=== PATIENT | female | born 1955 | race Caucasian/White ===

== ENCOUNTER 2025-03-21 01:51 | Inpatient (IN) | payer BC, MEDICARE ==
[~2025-03-21] VITALS: Ht 154.9 cm; Wt 70.0 kg
[2025-03-21] VITALS (7 sets, daily range): BP systolic 138–166; BP diastolic 75–100; PULSE 73–90; RESP 12–26; TEMP 97–97.8; O2SAT 96–100
--- NOTE | 2025-03-21 01:59 | Physician Documentation ---
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 Throughout the day for monitor was reporting heart rate variable between 30 and 200. She was symptomatic and experienced chest pressure no shortness a breath when heart rate was high. No obvious trigger provocation. The particular palliating or aggravating factors. She has been seen for this multiple times at various healthcare facilities and most recently was told by [facility] that should she be experiencing symptoms again, she should come to [facility] for further evaluation considering Dr. Sultana is practicing here. She states that when a heart rate dropped down into the 30s, she felt lightheaded and has been need to take a deep breath, but then she states that it began climbing back up again. At the time of my examination she is completely asymptomatic. She denies any chest pain or difficulty breathing. No concern for tobacco, alcohol or illicit substances use Medication Reconciliation Allergies: Coded Allergies: acetaminophen (Verified Allergy, Unknown, 03/21/25) cyclobenzaprine (Verified Allergy, Unknown, 03/21/25) hydrocodone (Verified Allergy, Unknown, 03/21/25) pantoprazole (Verified Allergy, Unknown, 03/21/25) terbinafine (Verified Allergy, Unknown, 03/21/25) Review of Systems ROS 10 point review of systems was performed and unless noted above in HPI is negative for acute process/complaint. Physical Exam Physical Exam GENERAL: Awake, alert, oriented, GCS 15, no apparent distress, non-toxic appearing, answers questions, follows commands appropriately. HEENT: Atraumatic, normocephalic, pupils equal, extraocular muscles intact, sclerae anicteric, mucus membranes moist, oropharynx is clear, no stridor. NECK: supple, full active range of motion, trachea midline, no thyromegaly, no lymphadenopathy, no JVD. CARDIOVASCULAR: regular rate/rhythm, no murmurs/gallops/rubs, Pulses are 2+ in all extremities and symmetric. Capillary refill less than 2 seconds. PULMONARY: Nonlabored, good air movement ,no respiratory distress, speaking in full sentences, clear to auscultation bilaterally, no wheezing, no ronchi, no rales, no accessory muscle use. GASTROINTESTINAL: Soft, non-tender, non-distended, normal active bowel sounds, no organomegaly, no pulsatile masses, no CVA tenderness. NEUROLOGIC: Lucid with normal mental status. Normal facial symmetry. Moves all extremities symmetrically and with purpose. No truncal ataxia. Speech is fluid without evidence of dysarthria or aphasia, no focal deficits appreciated. MUSCULOSKELETAL: There is full range of motion of all extremities. There is no joint pain or joint swelling or joint erythema. There is no muscle pain or tenderness or swelling. EXTREMITIES: warm, well-perfused, no cyanosis, no clubbing, no edema, no acute deformities. Skin: warm, dry, no rashes or lesions, no jaundice, no petechiae orpurpura. No ecchymosis. PSYCHIATRIC: Normal affect, normal insight, normal concentration. Focused exam: [] Progress Results/Orders Results/Orders Orders - PELON STERN DO Electrocardiogram (03/21/25 01:55) Chest,Single View (03/21/25 02:20) Hs Troponin I W Calculations (03/21/25 03:55) Completed Orders - PELON STERN DO Cbc/Diff (03/21/25 01:55) PHOS (03/21/25 01:55) Chest,Single View (03/21/25 02:20) MG (03/21/25 01:55) TSH (03/21/25 01:55) Free T4 (03/21/25 01:55) CMP (03/21/25 01:55) Hs Troponin I W Calculations (03/21/25 01:55) Vital Signs 03/21/25 03/21/25 03/21/25 01:56 02:06 03:22 Temp 97.6 Pulse 87 76 Resp 22 16 B/P (MAP) 143/80 137/75 (95) Pulse Ox 95 99 Laboratory Tests Test 03/21/25 02:00 White Blood Count 5.2 Red Blood Count 4.61 Hemoglobin 12.6 Hematocrit 38.0 Mean Corpuscular Volume 82.4 Mean Corpuscular Hemoglobin 27.4 Mean Corpuscular Hemoglobin Concent 33.3 Red Cell Distribution Width 14.9 H Platelet Count 228 Mean Platelet Volume 7.6 Neutrophils (%) (Auto) 61.9 Lymphocytes (%) (Auto) 28.4 Monocytes (%) (Auto) 7.5 Eosinophils (%) (Auto) 1.3 Basophils (%) (Auto) 0.9 Neutrophils # (Auto) 3.2 Lymphocytes # (Auto) 1.5 Monocytes # (Auto) 0.4 Eosinophils # (Auto) 0.1 Basophils # (Auto) 0.0 CBC Comment Sodium Level 140 Potassium Level 3.8 Chloride Level 108 H Carbon Dioxide Level 25.4 Anion Gap 7 L Blood Urea Nitrogen 11 Creatinine 0.87 Estimated GFR/1.73 m2 64 BUN/Creatinine Ratio 12.6 Glucose Level 100 Calcium Level 8.6 Phosphorus Level 3.9 Magnesium Level 2.2 Total Bilirubin 0.4 Aspartate Amino Transf (AST/SGOT) 15 Alanine Aminotransferase (ALT/SGPT) 27 Alkaline Phosphatase 97 Troponin I High Sensitivity 9 Total Protein 6.9 Albumin 3.7 Globulin 3.2 Albumin/Globulin Ratio 1.2 Thyroid Stimulating Hormone (TSH) 3.57 Free Thyroxine 0.94 Chemistry Comments EKG/XRAY/CT/US/VASC/MRI EKG : Additional Comment EKG was obtained at my request and interpreted by myself shows sinus rhythm of 85, normal WY interval, narrow QRS, no QT prolongation, normal axis, no STEMI. Medical Decision Making Findings Facility Status: ED Holds, COUNTS INCLUDE 234 BEDS AT THE [facility] process The plan was discussed with the patient, who demonstrates clear understanding of the plan and is in agreement with the plan unless otherwise noted in the chart. All questions have been answered, all concerns were addressed unless otherwise documented. I was available throughout their ED stay for frequent reassessment and questions. Differential Diagnoses (considered and possible or likely): [Tachy-jackson syndrome, SVT, a flutter, AFib, less likely ventricular malignant arrhythmia, dehydration, electrolyte derangement, ACS, CHF] ??Differential Diagnoses (considered and unlikely, not requiring evaluation currently): [PE is unlikely] MDM Data Please see HPI for the following: Independent Historians and external Records Review. 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 All vitals signs/haemodynamics, ordered tests were independently reviewed and interpreted by myself. Nursing triage complaint and vitals reviewed, additional nursing notes were reviewed as available and I agree unless otherwise noted or documented in contradiction in the chart Vital Signs: Independently reviewed Labs: Independently interpreted Imaging: Independently interpreted Old Medical Records: Independently reviewed, see HPI for relevant summary and information Pulse Oximetry: [96%] interpreted as [normal on room air] by me [Subeditor: [Regular Rate, Regular rhythm, no ectopy, NSR] reviewed and interpreted by me] Additionally notably showing: [Hemodynamics reviewed. The patient is not febrile, not tachycardic, not bradycardic, no evidence of arrhythmia here, no ev idence of hypotension respiratory distress. Laboratory studies showed normal CBC, normal chemistry, normal troponin. Normal thyroid studies. Imaging was obtained showing unremarkable chest x-ray.] Tests considered but not ordered include: [Echocardiogram can be done on an inpatient basis] Social Determinants of Health Impact: Patient was evaluated in [facility] [place] access to healthcare due to below par ratio of patient to medical providers. [] Comorbid Conditions Impacting Present Evaluation and Care/Treatment: [Suspect a tachy-jackson] Management Discussions with other Healthcare Providers: [Hospitalist regarding admission] Treatment and Disposition Medication Management (Given or considered): []. See EMR for details Consideration for Hospitalization/Escalation/Deescalation of Care: Admission for observation has been considered, and appears to be necessary for further workup and monitoring of her symptomatic arrhythmia ?ED Course:?[No clinical deterioration] ?Shared decision making:?[] Code status:?FULL Please see the full Electronic Medical Record for full details of nursing documentation, medications list, other records of complete past medical history and conditions, vital signs, laboratory studies, and any radiologic study interpretations by radiologists. Portions of this note were completed using Locai dictation software and as a result there may exist minor errors in spelling. I have reviewed elements of past family and social history and agree as included in note. Departure Disposition: 09 ADMITTED INPATIENT Impression: Primary Impression: Tachy-jackson syndrome Additional Impressions: Palpitations Chest pain Shortness of breath Condition: Stable Referrals: NO PRIMARY CARE PROVIDER (PCP) Signature Scribe Signature: No scribe Attestation: This note accurately reflects clinical decisions, work performed by myself, DO LEENA Lubin NICHOLAS M DO Jul 31, 2025 01:59
[2025-03-21 02:17] LABS: MEAN PLATELET VOLUME 7.6 FL (7.4-10.4); RED CELL DISTRIBUTION WIDTH 14.9 % (11.5-14.5)
[2025-03-21 02:47] LABS: CREATININE 0.87 MG/DL (0.40-0.90); TOTAL CARBON DIOXIDE 25.4 MMOL/L (24-32); eCRCL 49 ML/MIN; eGFR 64 ML/MIN
--- NOTE | 2025-03-21 02:47 | RADIOLOGY REPORT ---
CHEST RADIOGRAPH Indication: Palpitations Technique: Single frontal view of the chest was obtained COMPARISON: None FINDINGS: Lines and Tubes: None Lungs: Clear Pleura: No effusion. No pneumothorax. Cardiomediastinal contours: Unremarkable atherosclerotic vascular calcifications. Generator overlies the left chest wall. Bones: Unremarkable IMPRESSION: 1. No acute disease.
[2025-03-21 02:57] LABS: PHOSPHORUS 3.9 MG/DL (2.3-4.5)
[2025-03-21] MEDS ORDERED: mag hydrox/Alum hydrox/simeth 30ml oral suspension PO PRN (05:05)
[2025-03-21] MEDS ORDERED: ondansetron/PF 4mg/2ml inj IV PRN (05:05)
[2025-03-21] MEDS ORDERED: magnesium hydroxide 30ml (MOM) UD suspension PO PRN (05:05)
--- NOTE | 2025-03-21 05:14 | HISTORY AND PHYSICAL-Residence ---
History & Physical Providers to CC Resident Creating Document: SAMI ORELLANA RES ~ History of Present Illness Reason for Admit\Complaint: Symptomatic palpitations History of Present Illness 69-year-old female patient undergoing current evaluation for possible tachybradycardia syndrome was airlifted from home in [place] by EMS for symptomatic palpitations. She developed chest pain that lasted for less than a minute, was right-sided and associated with shortness of breath and diaphoresis. Chest pain occurred at rest, no other identifiable aggravating factors. Patient has developed these symptoms since June were she develops dizziness if heart rate is low and develops chest pain with a heart rate is high. She was recently evaluated at Dr. Sultana's office one week ago and the plan was to complete evaluation for her tachy-jackson syndrome, about a few days ago a monitor was placed in her heart. Denies any syncopal episodes. Patient was extremely tired and drowsy during my exam, and provided limited history. Allergies: Coded Allergies: acetaminophen (Verified Allergy, Unknown, 03/21/25) cyclobenzaprine (Verified Allergy, Unknown, 03/21/25) hydrocodone (Verified Allergy, Unknown, 03/21/25) pantoprazole (Verified Allergy, Unknown, 03/21/25) terbinafine (Verified Allergy, Unknown, 03/21/25) Past Medical History Past Medical History Allergies Tachybrady syndrome Past Surgical History Surgical History Comment Cholecystectomy Past Social History Social History Comment Nonsmoker. No alcohol or other illicit drug abuse. Lives alone at home in [place]. Ambulates without assistive device use ROS ROS As stated above in the HPI, otherwise all systems are reviewed and negative. Exam Vitals: Vital Signs Date Time Temp Pulse Resp B/P (MAP) Pulse Ox O2 Delivery O2 Flow Rate FiO2 03/21/25 04:54 84 18 110/36 (60) 98 03/21/25 01:56 97.6 General: General: Sleepy, no acute distress. HEENT: Conjunctiva pink, Sclera clear, Mucus Membranes moist. Resp: Unlabored. Lungs clear to auscultation bilaterally. Heart: Regular Rate and rhythm, normal S1 and S2 without murmur, rub or gallop. Abdomen: Soft and non tender no organomegaly Extremities: No cyanosis,clubbing or edema. Skin: Warm and Dry. Diagnostic Data Last Recorded Lab Results: 03/21/2519903/21/25199 Advance Care Planning Advanced Care plannin - 30 Minutes Additional Plan Symptomatic palpitations: Underlying tachybrady syndrome During the time in the ER, has remained sinus, rate less than 90 beats per minute Blood pressure stable Recommend consultation with Dr. Sultana in a.m. Continue telemetry monitoring Allergies: Takes Zyrtec and Claritin Urinary incontinence: Uses Ditropan Restart medications after reconciliation Lines: PIV Code status: Full code Diet: Regular DVT prophylaxis: Heparin b.i.d. Sami Orellana PGY3, Internal medicine resident Date of Service: Mar 21, 2025 Billing Provider: ELDA ANNE MD,SAMI, RES Mar 21, 2025 05:14
[2025-03-21 06:15] LABS: LEUKOCYTE ESTERASE ,URINE NEGATIVE (Neg); NITRITES, URINE NEGATIVE (Neg); OCCULT BLOOD,URINE NEGATIVE (Neg)
[2025-03-21 06:22] LABS: UA COLLECTION TYPE CLN CATCH MIDSTREAM
--- NOTE | 2025-03-21 06:25 | ELECTROCARDIOGRAPH REPORT ---
[facility] Test Date: 2025-03-21 Test Time: 02:04:37 Pat Name: KALPANA RUANO Department: EMERGENCY ROOM Room: [place] [address] Gender: F Rehabilitation Caseworker: : 1955 Requested By: PELON STERN Order Number: [id number] Reading MD: Dr. Jaison Cartagena Measurements Intervals [place] Rate: 85 P: 51 AR: 139 QRS: 21 QRSD: 77 T: 46 QT: 397 QTc: 472 Interpretive Statements Sinus rhythm Probable left atrial enlargement Low voltage, precordial leads Baseline wander in lead(s) V3 Electronically Signed On 03-22-2025 19:28:[address] Jaison Cartagena Please click the below link to view image of tracing.
[2025-03-21] MEDS: docusate sod 100mg capsule PO SCH (08:00)
[2025-03-21] MEDS: K and/or MAG REPLACEMENT MC SCH (08:00)
[2025-03-21] MEDS: magnesium sulf-water 4G/100mL 100 ML IV PRN (08:11)
[2025-03-21] MEDS: magnesium sulf-water 2g/50mL 50 ML IV PRN (08:11)
[2025-03-21] MEDS: potassium Cl 40MEQ/1/2NS 520ml 520 ML IV PRN (08:12)
[2025-03-21] MEDS: potassium Cl 20 mEq SR tablet PO PRN ×2 (08:12)
[2025-03-21] MEDS: magnesium Cl slow-release 64mg tablet PO PRN (08:13)
[2025-03-21] MEDS: heparin, porcine 5000 units/ml vial SQ SCH (08:48)
[2025-03-21] MEDS ORDERED: SERT-434 PO (14:27)
[2025-03-21] MEDS ORDERED: OMEP20CA16 PO (14:27)
[2025-03-21] MEDS ORDERED: HYDR-3717 PO (14:27)
[2025-03-21] MEDS ORDERED: BENZ-111 PO (14:27)
[2025-03-21] MEDS ORDERED: CETI10CA PO (14:27)
[2025-03-21] MEDS ORDERED: OXYB-58 PO (14:27)
[2025-03-21] MEDS ORDERED: ALBU10.7 INH (14:27)
[2025-03-21] MEDS ORDERED: TIZA-189 PO (14:27)
[2025-03-21] MEDS ORDERED: BUDE10.7 INH (14:27)
--- NOTE | 2025-03-21 15:40 | PROGRESS NOTE ---
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 Since arrival at [facility] the patient's heart rate has been in sinus rhythm in the 60s to 90s. I am awaiting Cardiology evaluation and Mary Li cardiology CLOTHES PRESSER is aware and will consult for Dr. Sultana today. The patient feels well and was hoping to be discharged home I informed her that this is not possible she just was admitted around 5:00 a.m. and we need to monitor her overnight. Gen. No acute distress alert and oriented 4 Lungs clear to ascultation bilaterally, no wheezes rales or rhonchi appreciated Heart normal sinus rhythm no murmurs rubs or clicks noted Abdomen soft nontender bowel sounds are normoactive Lower extremities no clubbing cyanosis, nor edema appreciated bilaterally Visit Coding Cardiology Date of Service: Mar 21, 2025 Billing Provider: DES MORROW DO Cardiology Evaluation and Emmie: NOT BILLABLE (Admitted after midnight to be billed by manager art) DES MORROW DO Mar 21, 2025 15:39
--- NOTE | 2025-03-21 16:03 | CONSULTATION REPORT ---
History of Present Illness Providers to CC CC: LUKAS SULTANA MD ~ Reason for Admit\Admit Dx: Cardiology consultation History of Present Illness Patient presented from home secondary to palpitations. She states that she has a associated chest pressure and shortness for breath. She has been evaluated in the clinic secondary to episodes of syncope/dizziness. She had an event monitor in January with no significant arrhythmias. She had nonsustained SVT lasting for seven beats. She then passed out again and a 2nd event monitor was ordered. She is finishing up that study now. Denies past medical history. Has not on AV frank blocking agents. Allergies: Coded Allergies: acetaminophen (Verified Allergy, Unknown, 03/21/25) cyclobenzaprine (Verified Allergy, Unknown, 03/21/25) hydrocodone (Verified Allergy, Unknown, 03/21/25) pantoprazole (Verified Allergy, Unknown, 03/21/25) terbinafine (Verified Allergy, Unknown, 03/21/25) Home Medications Home Medications Active Reported Breztri Aerosphere Inhaler (Budesonide/Glycopyr/Formoterol) 160 Mcg-9 Mcg-4.8 Mcg/Actuation Hfa.aer.ad Sertraline HCl 100 Mg Tablet 1 Tab PO BID Atarax* (Hydroxyzine HCl) 10 Mg Tablet 1 Tab PO HS Airsupra 90-80 Mcg Inhaler (Albuterol Sulfate/Budesonide) 90 Mcg-80 Mcg/Actuation Hfa.aer.ad Omeprazole 20 Mg Capsule.dr 1 Cap PO DAILY Zanaflex (Tizanidine HCl) 2 Mg Tablet 1 Tab PO BID Ditropan Xl (Oxybutynin Chloride) 5 Mg Tab.osm.24 1 Tab PO DAILY Zyrtec (Cetirizine Hcl) 10 Mg Capsule 10 Mg PO DAILY Benzonatate 100 Mg Capsule 1 Cap PO TID PRN Past Medical History Medical History Comment Syncope Past Surgical History Surgical History Comment Cholecystectomy Past Family History Family History: FH: dementia Past Social History Social History Comment Quit smoking greater than 10 years ago. No alcohol or recreational drug use. Physical Exam Last Vital Signs Recorded: RN Vital Signs have been reviewed: Yes, Temperature: 97.8, Source: Temporal, Heart Rate: 90, Respiratory Rate: 19, BP: 138/75, Pulse Oximetry: 100, Weight: 70.000 Physical Exam General: Awake, alert, oriented. No apparent distress Neck: Supple. Normal range of motion. No JVD Respiratory: Lungs are clear to auscultation bilaterally. No respiratory distress. Chest: Normal shape and size. No accessory muscle use. Cardiovascular: Regular rate and rhythm. S1-S2. No murmur, gallop, rub. Gastrointestinal: Abdomen is soft. Nontender to palpation. Bowel sounds present. Extremities: No lower extremity edema, cyanosis or clubbing. Neurologic: Alert and oriented x4. Nonfocal Psychiatric: Normal mood and affect. Skin: Normal color. Warm and dry. Review of Systems ROS Complains of chest pain, shortness for breath, dizziness. Had episode of syncope that has been going on since June. Results Echocardiogram Echocardiogram Echocardiogram February 13, 2025 LVEF 65-70%. Trace TR/mild MR. Cardiac Stress Test Cardiac Stress Test Nuclear stress test March 15, 2025 with no reversible ischemia Diagram Lab Result Diagram: 03/21/25 0200 03/21/25 0403 Assessment/Plan Additional Plan This is a 69-year-old female who presented with multiple complaints. The following is her problem list: History of syncope Dizziness/palpitations Thyroid function normal. No electrolyte imbalances. No anemia --event monitor completed in February 15 2025 minimum heart rate 41, average heart rate 73, max heart rate 138 beats per minute. Rare PACs with seven runs of nonsustained SVT lasting 3-14 beats. --repeat event monitor pending --if no significant arrhythmias recommend loop recorder given syncopal episodes in the past. Case discussed with Dr. Chandu Sultana. In agreement with the above. Monitor overnight. We will re-evaluate tomorrow. Supervising MD Supervising Physician: SEE Izaguirre NP Mar 21, 2025 16:03
[2025-03-22] VITALS (13 sets, daily range): BP systolic 112–184; BP diastolic 60–97; PULSE 68–94; RESP 10–16; TEMP 97.1–97.8; O2SAT 97–100
[2025-03-22 06:47] LABS: MEAN PLATELET VOLUME 7.5 FL (7.4-10.4); RED CELL DISTRIBUTION WIDTH 14.7 % (11.5-14.5)
[2025-03-22 06:58] LABS: CHOL/HDL RATIO 4.3 (0.00-4.99); CREATININE 0.81 MG/DL (0.40-0.90); LDL CHOLESTEROL 155 MG/DL (50-100); TOTAL CARBON DIOXIDE 26.8 MMOL/L (24-32); eCRCL 48 ML/MIN; eGFR 70 ML/MIN
--- NOTE | 2025-03-22 12:10 | PROGRESS NOTE ---
Daily Progress Note Providers to CC ~ Antibiotic Timeout Antibiotic Ordered?: No Subjective No new complaints. Patient is presently asymptomatic. Objective Vital Signs Date Time Temp Pulse Resp B/P (MAP) Pulse Ox O2 Delivery O2 Flow Rate FiO2 03/22/25 11:39 88 03/22/25 11:00 97.4 14 165/85 (111) 98 Room Air Result Diagram: 03/22/25 0600 03/22/25 0608 Gen. awake alert oriented asymptomatic HEENT: Normocephalic, atraumatic, extraocular movements are intact, sclera anicteric, conjunctiva pinkish, moist oral mucosa, no rash or ulcers. NECK: Supple, no JVD, trachea midline. CHEST: Clear to auscultation, no wheezes crackles or rhonchi. HEART: Regular rate rhythm, no murmur gallop or rub. ABDOMEN: Soft, nontender, no organomegaly. EXTREMITIES: No cyanosis clubbing or edema. NEURO EXAM: Grossly nonfocal. MUSCULOSKELETAL : No joint swelling or deformities. SKIN: No rash or ulcers noted. Other Results Medications reviewed Problem\Assessment\Plan 69 years old female, presented to the ER after she developed chest pain and palpitations. Patient was airlifted from a hospital in [place]. 1. 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 Patient has been evaluated by Dr. Sultana. Continue treat per his recommendations. 2. Hypertension: Switch hydralazine to a scheduled treatment 3. Hyperlipidemia: Start on atorvastatin 4. Code status: Full code 5. Depression: Continue Zoloft Date of Service: Mar 22, 2025 Billing Provider: REBECA MEZA MD Common Visit Codes: 28097-MILTINLAVO INP/OBS CARE(HIGH) REBECA MEZA MD Mar 22, 2025 12:10
--- NOTE | 2025-03-22 13:28 | PROGRESS NOTE ---
Progress Note Cardiology Providers to CC ~ Subjective Subjective No overnight events. Telemetry reviewed. Has remained in normal sinus rhythm average heart rate in the 80s. Lowest heart rate while asleep was 49 beats per minute. No current complaints of dizziness or chest pain. Objective Result Diagram: 03/22/25 0600 03/22/25 0608 Objective General: Awake, alert, oriented. No apparent distress Neck: Supple. Normal range of motion. No JVD Respiratory: Lungs are clear to auscultation bilaterally. No respiratory distress. Chest: Normal shape and size. No accessory muscle use. Cardiovascular: Regular rate and rhythm. S1-S2. No murmur, gallop, rub. Gastrointestinal: Abdomen is soft. Nontender to palpation. Bowel sounds present. Extremities: No lower extremity edema, cyanosis or clubbing. Neurologic: Alert and oriented x4. Nonfocal Psychiatric: Normal mood and affect. Skin: Normal color. Warm and dry. Problem\Assessment\Plan Additional Plan This is a 69-year-old female who presented with multiple complaints. The following is her problem list: History of syncope Dizziness/palpitations Thyroid function normal. No electrolyte imbalances. No anemia --event monitor completed in February 15 2025 minimum heart rate 41, average heart rate 73, max heart rate 138 beats per minute. Rare PACs with seven runs of nonsustained SVT lasting 3-14 beats. --repeat event monitor pending --03/22/25: no overnight events. --if no significant arrhythmias on most recent event recommend loop recorder given syncopal episodes in the past. --encouraged to increase water intake. Case discussed with Dr. Lauren Sultana. In agreement with the above. Outpatient follow up recommended. Supervising Physician: SEE Mitchell NP Mar 22, 2025 13:28
--- NOTE | 2025-03-22 14:51 | ELECTROCARDIOGRAPH REPORT ---
[facility] Test Date: 2025-03-22 Test Time: 14:50:00 Pat Name: KALPANA RUANO Department: [facility] 3S Patient ID: [facility]-[id number] Room: [place] [address] B Gender: F Director Mobile: : 1955 Requested By: REBECA MEZA Order Number: [id number] Reading MD: Dr. LUZ Diaz Measurements Intervals [place] Rate: 89 P: 67 WY: 119 QRS: 36 QRSD: 87 T: 53 QT: 395 QTc: 481 Interpretive Statements Sinus rhythm Borderline short WY interval Electronically Signed On 03-23-2025 13:05:[address] LUZ Diaz Please click the below link to view image of tracing.
[2025-03-23 02:00] VITALS: BP 151/54; PULSE 72; RESP 16; TEMP 97.4; O2SAT 98
[2025-03-23 06:00] VITALS: BP 130/62; PULSE 68; RESP 16; TEMP 97.2; O2SAT 98
[2025-03-23 06:00] LABS: MEAN PLATELET VOLUME 7.4 FL (7.4-10.4); RED CELL DISTRIBUTION WIDTH 14.6 % (11.5-14.5)
[2025-03-23 06:24] LABS: CREATININE 0.90 MG/DL (0.40-0.90); TOTAL CARBON DIOXIDE 26.0 MMOL/L (24-32); eCRCL 43 ML/MIN; eGFR 62 ML/MIN
[2025-03-23 08:00] VITALS: RESP 15; O2SAT 100
[2025-03-23 11:00] VITALS: BP 150/64; PULSE 66; RESP 16; TEMP 97.6; O2SAT 99
--- NOTE | 2025-03-23 13:04 | DISCHARGE SUMMARY ---
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 Sultana Complications: None Condition on DC: Stable Continued Medications: Benzonatate (Benzonatate) 100 Mg Capsule 1 CAP PO TID PRN for cough Cetirizine Hcl (Zyrtec) 10 Mg Capsule 10 MG PO DAILY, CAP Hydroxyzine Hcl* (Atarax*) 10 Mg Tablet 1 TAB PO HS Omeprazole (Omeprazole) 20 Mg Capsule.dr 1 CAP PO DAILY Oxybutynin Chloride (Ditropan Xl) 5 Mg Tab.osm.24 1 TAB PO DAILY Sertraline HCl (Sertraline HCl) 100 Mg Tablet 1 TAB PO BID Tizanidine Hcl (Zanaflex) 2 Mg Tablet 1 TAB PO BID Discharge Summary: Reason for admission: 69 years old female presented to the ER for evaluation of palpitations. Patient reports that her heart rate fluctuates and when it is very rapid, she feels chest pain and when it is very low, she feels lightheaded and syncopal. Please refer to admission H&P for more details. Hospital course: Patient was admitted on the monitored floor and the hospital course is as follows. 1.. 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 She gets dizzy when her heart rate is low but when her heart rate is rapid she gets palpitations and chest pain. Patient has been evaluated by Dr. Sultana. Patient underwent event monitoring which showed a minimum heart rate of 41, average heart rate of 73 and a max heart rate of 138. Rare PACs with seven runs of nonsustained SVT lasting 3-14 beats. Thyroid function and electrolytes normal. Patient has had no significant arrhythmias during this admission and was monitored on tele. She is advised to follow up outpatient with her data collection interviewer. Patient reports that she had a MRI within last week at [facility] which was reported normal. 2. GERD: Continued on omeprazole 3. Urinary incontinence: Continued on oxybutynin 4. Depression/anxiety: Continued on Zoloft and Zanaflex. Discharge exam: I examined the patient on the day of discharge. Gen. awake alert oriented asymptomatic HEENT: Normocephalic, atraumatic, pupils round reactive to light and accommodation, extraocular movements are intact, sclera anicteric, conjunctiva pinkish, moist oral mucosa, no rash or ulcers. NECK: Supple, no JVD, trachea midline. CHEST: Clear to auscultation, no wheezes crackles or rhonchi. HEART: Regular rate rhythm, no murmur gallop or rub. ABDOMEN: Soft, nontender, no organomegaly. EXTREMITIES: No cyanosis clubbing or edema. NEURO EXAM: Grossly nonfocal. MUSCULOSKELETAL : No joint swelling or deformities. SKIN: No rash or ulcers noted. Disposition : Home *Problems/Diagnosis: (1) Tachy-jackson syndrome Status: Acute (2) Palpitations Status: Acute Total Time Spent on D/C: > 30 Minutes Date of Service: Mar 23, 2025 Billing Provider: REBECA MEZA MD Common Visit Codes: 92305-VSB/OBS DISCH DAY >30min REBECA MEZA MD Mar 23, 2025 13:04
[2025-03-23] MEDS: lactose-reduced food (Ensure Enlive) - 237ml bottle PO SCH (13:15)
[2025-03-23 13:24] VITALS: RESP 18; O2SAT 19
== END 2025-03-23 13:54 | disposition home or self-care (01) | DRG 309 ==
LOC: ER 01:51 → ED HOLD 04:43 → PCU 3S 09:35 → CMPBEDREQ 09:40
PROVIDERS: ADMIT Surgery Surgical Critical Care; ATTEND Family Medicine
DX: I49.5 Sick sinus syndrome (principal); I47.10 Supraventricular tachycardia, unspecified; F32.A Depression, unspecified; F41.9 Anxiety disorder, unspecified; K21.9 Gastro-esophageal reflux disease without esophagitis; R32 Unspecified urinary incontinence; E78.5 Hyperlipidemia, unspecified; I10 Essential (primary) hypertension; Z79.899 Other long term (current) drug therapy; Z88.8 Allergy status to other drugs, medicaments and biological substances
CPT/HCPCS: 36415; 71045; 80048; 80053; 80061; 81003; 83036; 83735; 84100; 84132; 84439; 84443; 84484; 85025; 87081; 93005; 96372; 99285; G0378; J1644; J2270

== ENCOUNTER 2025-03-25 19:42 | Inpatient (IN) | payer BC, MEDICARE ==
[~2025-03-25] VITALS: Ht 162.6 cm; Wt 68.1 kg
[~2025-03-25 19:42] MED LIST: ALBU10.7 INH; BENZ-111 PO; BUDE10.7 INH; CETI10CA PO; HYDR-3717 PO; OMEP20CA16 PO; OXYB-58 PO; SERT-434 PO; TIZA-189 PO
--- NOTE | 2025-03-25 19:52 | ELECTROCARDIOGRAPH REPORT ---
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 Tavares Del Angel Measurements Intervals [place] Rate: 61 P: 47 NH: 123 QRS: 7 QRSD: 81 T: 2 QT: 445 QTc: 449 Interpretive Statements Sinus rhythm Nonspecific T abnrm, anterolateral leads Electronically Signed On 03-25-2025 21:49:[address] Tavares Del Angel Please click the below link to view image of tracing.
[2025-03-25 19:56] LABS: MEAN PLATELET VOLUME 7.6 FL (7.4-10.4); RED CELL DISTRIBUTION WIDTH 14.5 % (11.5-14.5)
[2025-03-25 20:15] LABS: CREATININE 0.91 MG/DL (0.40-0.90); PRO BRAIN NATRIURETIC PEPTIDE 139 PG/ML (0-125); TOTAL CARBON DIOXIDE 26.5 MMOL/L (24-32); eCRCL 49 ML/MIN; eGFR 61 ML/MIN
--- NOTE | 2025-03-25 20:24 | RADIOLOGY REPORT ---
CHEST RADIOGRAPH Indication: CP Technique: 1 view Comparison: DI CHEST,SINGLE VIEW on DOS: 03/21/25 FINDINGS: Lines and Tubes: None Lungs: No focal consolidation. Pleura: No effusion or pneumothorax. Cardiomediastinal contours: Normal size. Aortic atherosclerosis. Bones: No acute osseous abnormality. IMPRESSION: 1. No acute cardiopulmonary abnormality or significant change from comparison exam.
--- NOTE | 2025-03-26 01:42 | Physician Documentation ---
History of Present Illness ~ Chief Complaint: Chest Pain Stated Complaint: CP Time Seen by MD: 01:40 OK to notify your PCP?: Yes Source: patient, RN/MD, RN notes reviewed, old records Mode of Arrival: POV Exam Limitations: no limitations HPI 69 year old female with recent admission due to palpitations presents to the emergency department for complaints of chest pains that began today. 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 She states that her palpations feel like a flutter in her chest and are associated with near syncopal episodes and headaches. She states that she has not been having any diaphoresis. She endorses caffeine use from coca cola. She states that she is not on beta blockers and is only taking baby aspirin. Of note patient had a recent stress test when admitted but states that it was negative. Medication Reconciliation Allergies: Coded Allergies: acetaminophen (Verified Allergy, Unknown, 03/25/25) cyclobenzaprine (Verified Allergy, Unknown, 03/25/25) hydrocodone (Verified Allergy, Unknown, 03/25/25) pantoprazole (Verified Allergy, Unknown, 03/25/25) terbinafine (Verified Allergy, Unknown, 03/25/25) hydralazine (Verified Adverse Reaction, Mild, chest pain, 03/26/25) Scheduled Budesonide/Glycopyr/Formoterol (Breztri Aerosphere Inhaler), 2 PUFFS INH BID, (Reported) Cetirizine Hcl (Zyrtec), 10 MG PO DAILY, (Reported) Hydroxyzine Hcl* (Atarax*), 1 TAB PO HS, (Reported) Losartan Potassium (Losartan Potassium), 25 MG PO DAILY Omeprazole (Omeprazole), 1 CAP PO DAILY, (Reported) Oxybutynin Chloride (Ditropan Xl), 1 TAB PO DAILY, (Reported) Scheduled PRN Albuterol Sulfate/Budesonide (Airsupra 90-80 Mcg Inhaler), 2 PUFFS INH QID PRN for SOB or wheezing, (Reported) Benzonatate (Benzonatate), 1 CAP PO TID PRN for cough, (Reported) Tizanidine Hcl (Zanaflex), 1 TAB PO BID PRN for muscle spasms, (Reported) Discontinued Medications Sertraline HCl (Sertraline HCl), 1 TAB PO BID, (Reported) Discontinued Reason: completed med therapy Past Medical History Past Medical History: COPD, Hernia Past Surgical History: cholecystectomy, hysterectomy Patient History: FH: dementia Smoking Status: Never smoker Alcohol Use: None Drug Use: none Review of Systems All Other Systems at this time: Reviewed and Negative ROS As stated above in the HPI, otherwise all systems are reviewed and negative. Physical Exam Vital Signs: RN Vital Signs have been reviewed: Yes, Temperature: 97.6, Source: Temporal, Heart Rate: 59, Respiratory Rate: 17, BP: 118/69, Pulse Oximetry: 99, Weight: 68.100 Oxygen Flow Rate: 0 Pulse Oximetry Reflects: adequate oxygenation Physical Exam General: The patient is well developed, well nourished, nontoxic appearing and is in no acute distress. Skin: L[place], warm and dry with no rashes. HEENT: Head was normocephalic and atraumatic. Eyes - pupils equal, round, reactive to light and accommodation. Extraocular movements were intact. Conjunctivae were nonicteric. Ears - bilateral tympanic membranes were normal. The mouth and oropharynx were clear with moist mucous membranes. There were no pharyngeal exudates or erythema. Neck: Supple and nontender. There was no jugular venous distention, lymphadenopathy, thyromegaly or masses. Chest: Clear to auscultation bilaterally without wheezes, rales or rhonchi. No accessory muscle use. No dullness to percussion. Heart: PVCs on exam. Rate regular and rhythmic. S1, S2. No murmurs. Palpation of the chest wall was normal. No rubs or thrills. Abdomen: Soft, nontender and nondistended. Positive bowel sounds. No guarding or rebound. No hepatosplenomegaly or palpable masses. Extremities: No cyanosis, clubbing or edema. The patient moves all extremities. Pulses were equal and symmetric. Neurologic: Cranial nerves II-XII were intact. Sensation was intact to light touch throughout. Motor strength was 5/5 in all four extremities. Deep tendon reflexes were intact in both upper and lower extremities. Psychologic: The patient was oriented to person, place and time. The patient demonstrated appropriate judgement and insight. Progress Progress Note 0228: The case was discussed with the hospitalist who was informed on the case and kindly agreed to admission. Results/Orders Reviewed/noted all lab results: Yes Results/Orders Orders - JAISON CARTAGENA MD Chest,Single View (03/25/25 20:03) Monitor (03/25/25 19:50) Saline Lock (03/25/25 19:50) Oxygen (03/25/25 19:50) Electrocardiogram (03/25/25 19:50) Page Hospitalist (03/26/25 01:55) Fill Out Med Reconciliation (03/26/25 01:55) Completed Orders - JAISON CARTAGENA MD Chest,Single View (03/25/25 20:03) Cbc/Diff (03/25/25 19:50) BMP (03/25/25 19:50) PBNP (03/25/25 19:50) Electrocardiogram (03/25/25 19:50) Hs Troponin I W Calculations (03/25/25 19:50) Hs Troponin I W Calculations (03/25/25 21:50) Hs Troponin I W Calculations (03/25/25 22:50) Urinalysis, Cult If Indicated (03/26/25 01:55) Pt Inr (03/26/25 01:55) PTT (03/26/25 01:55) Normal Saline 1000ml (0.9% Sodium Chlori (03/26/25 01:55) Aspirin 81mg Chew Tablet (Aspirin 81mg C (03/26/25 01:55) MG (03/25/25 19:47) Vital Signs 03/25/25 03/25/25 03/25/25 03/25/25 19:50 20:30 20:30 21:00 Temp 97.6 Pulse 73 73 65 Resp 15 18 18 16 B/P (MAP) 137/79 143/66 (91) 120/61 (80) Pulse Ox 98 99 98 O2 Flow Rate 0 0 03/25/25 03/25/25 03/25/25 03/25/25 21:33 22:00 22:24 23:15 Pulse 62 57 64 52 Resp 18 16 16 15 B/P (MAP) 120/56 (77) 104/50 (68) 132/66 (88) 120/54 (76) Pulse Ox 99 97 98 97 O2 Flow Rate 0 0 8/5/25 8/5/25 8/5/25 8/5/25 00:00 01:45 02:35 03:17 Pulse 59 55 54 55 Resp 17 17 14 16 B/P (MAP) 118/69 (85) 92/46 (61) 138/49 (78) 160/68 (98) Pulse Ox 99 99 98 99 O2 Flow Rate 0 0 0 0 Laboratory Tests Test 03/25/25 19:47 03/25/25 21:36 03/25/25 22:39 03/26/25 02:21 White Blood Count 5.5 Red Blood Count 4.51 Hemoglobin 12.8 Hematocrit 37.4 Mean Corpuscular Volume 83.0 Mean Corpuscular Hemoglobin 28.3 Mean Corpuscular Hemoglobin Concent 34.1 Red Cell Distribution Width 14.5 Platelet Count 230 Mean Platelet Volume 7.6 Neutrophils (%) (Auto) 59.4 Lymphocytes (%) (Auto) 31.8 Monocytes (%) (Auto) 6.8 Eosinophils (%) (Auto) 1.1 Basophils (%) (Auto) 0.9 Neutrophils # (Auto) 3.3 Lymphocytes # (Auto) 1.7 Monocytes # (Auto) 0.4 Eosinophils # (Auto) 0.1 Basophils # (Auto) 0.1 CBC Comment Sodium Level 140 Potassium Level 4.0 Chloride Level 107 Carbon Dioxide Level 26.5 Anion Gap 7 L Blood Urea Nitrogen 18 Creatinine 0.91 H Estimated GFR/1.73 m2 61 BUN/Creatinine Ratio 19.8 Glucose Level 94 Calcium Level 8.7 Magnesium Level 2.0 Troponin I High Sensitivity 15 16 16 Pro-B-Type Natriuretic Peptide 139 H Albumin 3.8 Chemistry Comments Troponin I High Sens Percent Delta 6 0 Troponin I Hi Sens Absolute Change 1 0 Prothrombin Time 10.3 INR International Normalized Ratio 1.0 Activated Partial Thromboplast Time 23 Coagulation Comments Re-Evaluation Re-Evaluation : Re-Evaluation: Improved Progress Patient was seen and examined. Patient is given reassurance. Patient was placed on a monitor. Laboratory work was obtained. CBC was within normal limits no anemia or leukocytosis. Urinalysis was within normal limits coagulation within normal limits chemistry was also within normal limits proBNP 139 and 3- troponins. Patient was complaining of palpitations possible ischemic etiology unclear. Patient received a fluid bolus if the patient was going to receive a cardiac catheterization tomorrow. Also received aspirin if the possibility of coronary artery disease was an etiology otherwise patient was admitted for rule out cardiac arrhythmias versus ischemic etiologies versus neuro etiologies however there was no neurological focal Continuous environmental monitoring technician interpretation shows normal sinus rhythm heart rate 70s, no ectopy, normal, my interpretation. Pulse oximetry monitor interpretation shows normal oxygenation at 99% room air, normal, my interpretation. 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 Jaison Cartagena Measurements Intervals [place] Rate: 61 P: 47 CA: 123 QRS: 7 QRSD: 81 T: 2 QT: 445 QTc: 449 Interpretive Statements Sinus rhythm Nonspecific T abnrm, anterolateral leads Electronically Signed On 03-25-2025 21:49:[address] Jaison Cartagena Chest X-Ray : Additional Comments CHEST RADIOGRAPH Indication: CP Technique: 1 view Comparison: DI CHEST,SINGLE VIEW on DOS: 03/21/25 FINDINGS: Lines and Tubes: None Lungs: No focal consolidation. Pleura: No effusion or pneumothorax. Cardiomediastinal contours: Normal size. Aortic atherosclerosis. Bones: No acute osseous abnormality. IMPRESSION: 1. No acute cardiopulmonary abnormality or significant change from comparison exam. Electronically Signed by:HEMANT CARRILLO MD Date & Time: 03/25/252020 Heart Score: Heart Score Response (Comments) Value History Moderate Suspicious 1 EKG Normal 0 Age >65 2 Risk Factors 1 or 2 risk factors 1 Troponin Normal limit 0 Total 4 Medical Decision Making Additional info obtained from: old records Differential Dx:Considerations: Include: angina, aortic dissection, chest wall pain, cholelithiasis, CHF, costochondritis, myocardial infarction, pericarditis, pleuritis, pancreatitis, pneumonia, pneumothorax, pulmonary embolus, other Departure Time of Disposition: 02:28 Disposition: 09 ADMITTED INPATIENT Admitted to Inpatient Unit: yes, to hospitalist Admission Level of Care: PCU with Tele Impression: Primary Impression: Near syncope Additional Impressions: Chest pain Qualified Codes: I25.9 - Chronic ischemic heart disease, unspecified Palpitations Condition: Guarded Referrals: NO PRIMARY CARE PROVIDER (PCP) Prescriptions Losartan Potassium (Losartan Potassium) 25 Mg Tablet 25 MG PO DAILY for 90 Days, #90 TAB Prov: KARIE SKINNER DATA ENTRY MACHINE OPERATOR 03/28/25 Education Educated: Patient Educated regarding: diagnosis, treatment, need for follow up Signature Scribe Signature: Scribed for Jaison Cartagena MD by Ace Mortensen . 03/26/25 02:05 Attestation: The note accurately reflects work and decisions made by me.Jaison Cartagena MD 03/29/25 22:15 JAISON CARTAGENA MD Mar 26, 2025 01:41 ACE RODRIGUEZ Mar 26, 2025 02:05
[2025-03-26] MEDS: normal saline 1000ml 1,000 ML IV ONE (02:34)
[2025-03-26 02:45] LABS: INR 1.0 INR
[2025-03-26 02:47] LABS: APTT 23 SECONDS (22-32)
[2025-03-26] MEDS ORDERED: ondansetron/PF 4mg/2ml inj IV PRN (03:15)
[2025-03-26] MEDS ORDERED: magnesium sulf-water 2g/50mL 50 ML IV PRN (03:15)
[2025-03-26] MEDS ORDERED: magnesium hydroxide 30ml (MOM) UD suspension PO PRN (03:15)
[2025-03-26] MEDS ORDERED: mag hydrox/Alum hydrox/simeth 30ml oral suspension PO PRN (03:15)
[2025-03-26] MEDS ORDERED: magnesium Cl slow-release 64mg tablet PO PRN (03:15)
[2025-03-26] MEDS ORDERED: potassium Cl 20 mEq SR tablet PO PRN ×2 (03:15)
[2025-03-26] MEDS ORDERED: potassium Cl 40MEQ/1/2NS 520ml 520 ML IV PRN (03:15)
[2025-03-26] MEDS ORDERED: magnesium sulf-water 4G/100mL 100 ML IV PRN (03:15)
[2025-03-26] MEDS ORDERED: ipratropium/albuterol 3ml nebule NEB PRN (03:35)
[2025-03-26 04:18] LABS: LEUKOCYTE ESTERASE ,URINE NEGATIVE (Neg); NITRITES, URINE NEGATIVE (Neg); OCCULT BLOOD,URINE NEGATIVE (Neg)
[2025-03-26 04:19] LABS: UA COLLECTION TYPE CLN CATCH MIDSTREAM
--- NOTE | 2025-03-26 04:25 | HISTORY AND PHYSICAL-Residence ---
History & Physical Providers to CC Resident Creating Document: DIEGO HERNANDEZ RES CC: CIRO OHARA MD ~ History of Present Illness Reason for Admit\Complaint: Palpitations and chest pain History of Present Illness 69-year-old male with PMH of GERD, anxiety, allergies, urinary incontinence, presented to the ER with chief complaints of palpitations and chest pain this morning. Patient stated she is having this ongoing for the past 68 months. However this morning when she was working she experienced chest pain over the center of the chest, radiating to both side of the jaws, not describing it as pressure, not aggravated with exertion, and relieved after sometime. Stated she had similar episodes before but none of the episodes are associated with exertion. He also had palpitations on and off, denies currently lightheadedness however patient stated two months ago she had lightheadedness and syncope. She was admitted to the hospital two days ago and discharged on 03/23, cardiology recommended outpatient follow up on event monitor at the time. Allergies: Coded Allergies: acetaminophen (Verified Allergy, Unknown, 03/25/25) cyclobenzaprine (Verified Allergy, Unknown, 03/25/25) hydrocodone (Verified Allergy, Unknown, 03/25/25) pantoprazole (Verified Allergy, Unknown, 03/25/25) terbinafine (Verified Allergy, Unknown, 03/25/25) hydralazine (Verified Adverse Reaction, Mild, chest pain, 03/26/25) Home Medications Home Medications Active Reported Breztri Aerosphere Inhaler (Budesonide/Glycopyr/Formoterol) 160 Mcg-9 Mcg-4.8 Mcg/Actuation Hfa.aer.ad 2 Puffs INH BID Atarax* (Hydroxyzine HCl) 10 Mg Tablet 1 Tab PO HS Airsupra 90-80 Mcg Inhaler (Albuterol Sulfate/Budesonide) 90 Mcg-80 Mcg/Actuation Hfa.aer.ad 2 Puffs INH QID PRN Omeprazole 20 Mg Capsule.dr 1 Cap PO DAILY Zanaflex (Tizanidine HCl) 2 Mg Tablet 1 Tab PO BID PRN Ditropan Xl (Oxybutynin Chloride) 5 Mg Tab.osm.24 1 Tab PO DAILY Zyrtec (Cetirizine Hcl) 10 Mg Capsule 10 Mg PO DAILY Benzonatate 100 Mg Capsule 1 Cap PO TID PRN Past Medical History Past Medical History GERD Anxiety Allergies Urinary incontinence Past Surgical History Surgical History Comment Cholecystectomy Family History Family History: FH: dementia Past Social History Social History Comment Does not smoke, denies illegal drug use, no alcohol abuse Independent for ADLs Lives by herself Alcohol Use: None Drug Use: None ROS All Other Systems: Reviewed and Negative ROS ROS Constitutional: No fever, dizziness, weakness. no change in appetite/weight HEENT: No blurring of the vision, No sore throat, epistaxis, tinnitus Cardiovascular: Positive for chest pain/discomfort, palpitations, syncope. No pedal edema Respiratory: No sob, cough,, hemoptysis Gastrointestinal: No abdominal pain, nausea, vomiting. No diarrhea, constipation, melena. Genitourinary: No frquency, urgency, incontinence, nocturia. No dysuria, hematuria Musculoskeletal: No arthralgia, myalgia Endocrine: No fatigue, polydipsia, polyuria. No heat or cold intolerance Neurologic: No headache, vertigo. No weakness, numbness or tingling of extremities Psychiatric: No hallucinations/delusions, no anhedonia, no suicidal ideation\ Hematologic: No bleeding or bruises Reviewed in full. All negative except for pertinent positives in HPI Exam Vitals: Vital Signs Date Time Temp Pulse Resp B/P (MAP) Pulse Ox O2 Delivery O2 Flow Rate FiO2 03/26/25 03:17 55 16 160/68 (98) 99 0 03/25/25 19:50 97.6 General: General: Elderly female, pleasant, AAO x4, not in apparent distress Head: Normocephalic with an atraumatic Eyes: Pupils- 3mm, reacting to light, conjunctiva- anicteric Nose and throat: No polyps, septum- normal, no mucosal ulcers Neck: Supple, no lymphadenopathy, no carotid bruit Respiratory: No use of accessory muscles of respiration, Bilateral normal vesiscular breath sounds heard. No wheeze, rhochi or creps Cardiac: S1-S2 heard, rythm regular, no gallop/murmur Abdomen: non distended, no tenderness, no organomegaly, bowel sounds- heard Extremities: no clubbing, no pedal edema, no deformities, peripheral pulses- 2+ Skin: warm and dry, no rash, no purpura Neuro: No focal deficit, gross cranial nerve exam- normal Diagnostic Data Last Recorded Lab Results: [id number]/[id number] Diagnostic Data: Laboratory Tests Test 03/26/25 02:21 Prothrombin Time 10.3 SECONDS (9.0-12.0) INR International Normalized Ratio 1.0 INR Activated Partial Thromboplast Time 23 SECONDS (22-32) Coagulation Comments Advance Care Planning Advanced Care plannin - 30 Minutes (Code status is discussed with her and she opted for full code) Additional Plan 69-year-old male with PMH of GERD, anxiety, allergies, urinary incontinence, presented to the ER with chief complaints of palpitations and chest pain this morning. These symptoms has been ongoing for past 6-8 months Chest pain GERD -unlikely cardiac -EKG showed normal rhythm, no acute ST-T changes, troponins x3 negative. Patient has recently undergone stress test and echo, results of which we have to be obtained from Dr. Morales office -and she had history of GERD, and as patient is having chronic chest pain with no definitive diagnosis- admitting the patient for evaluation of the GERD and possible EGD. -start IV Protonix 40 mg once daily. -consult Dr. Romero sales trader Palpitations -the even monitor which showed nonsustained SVT -etiology during the last admission recommended the repeat event monitoring and loop recorder if needed -TSH is normal -could be secondary to anxiety -admitted for 24 hour telemetry for monitoring of any arrhythmia Anxiety -continue hydroxyzine Allergies -continues zyrtec Urinary incontinence -continue Ditropan Code Status: Full code Line/tube: PIV DVT prophylaxis: Lovenox Nutrition: Heart healthy PT: No Prognosis: Guarded Disposition: Continue care in ortho floor, consult Cardiology and gastro Diego Hernandez MD IM PGY-3 resident Date of Service: Mar 26, 2025 Billing Provider: CIRO OHARA MD, HARIVARSHA, RES Mar 26, 2025 04:25
[2025-03-26 05:41] VITALS: PULSE 55; RESP 14; O2SAT 100
[2025-03-26] MEDS: K and/or MAG REPLACEMENT MC SCH (06:16)
[2025-03-26] MEDS: docusate sod 100mg capsule PO SCH (06:16)
[2025-03-26] MEDS ORDERED: pantoprazole 40mg Tablet.DR PO SCH (07:30)
[2025-03-26] MEDS: OXYBUTYNIN 5 MG PO SCH (07:46)
[2025-03-26] MEDS: enoxaparin 40mg/0.4ml syringe SUBCUT SCH (07:53)
[2025-03-26 08:00] VITALS: BP_SYST 131; BP_SYST 140; BP_SYST 142; BP_DIAS 55; BP_DIAS 68; BP_DIAS 73; PULSE 54; PULSE 75
[2025-03-26 10:00] VITALS: BP 131/55; PULSE 57; RESP 19; TEMP 97.7; O2SAT 98
[2025-03-26] MEDS ORDERED: aminophylline 250mg/10ml inj. IV PRN (10:50)
[2025-03-26] MEDS ORDERED: regadenoson 0.4mg/5ml syringe IV PRN (10:50)
[2025-03-26] MEDS ORDERED: metoprolol tartrate 1mg/ml inj IV PRN (10:50)
--- NOTE | 2025-03-26 13:14 | VASCULAR REPORT ---
Carotid Duplex Clinical History: Lightheadedness, dizziness Comparison: None Technique: Duplex Doppler evaluation of the extracranial carotid and vertebral arteries including color Doppler and spectral/pulsed waveform analysis was performed. Findings: RIGHT SIDE: The peak systolic velocities are 112 cm/s in the CCA, 116 cm/s in the ICA. The ICA/CCA ratio is 1.29 . The external carotid artery is patent with peak systolic velocity of 136 cm/s proximally. The subclavian artery is patent with peak systolic velocity of 284 cm/s. 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 LEFT SIDE: The peak systolic velocities are 121 cm/s in the CCA, 111 cm/s in the ICA. The ICA/CCA ratio is 1.34 . The external carotid artery is patent with peak systolic velocity of 100 cm/s proximally. The subclavian artery is patent with peak systolic velocity of 227 cm/s. There is appropriate antegrade flow in the left vertebral artery. IMPRESSION: Less than 50% stenosis of bilateral carotid artery systems based on peak systolic velocity criteria a nd presence of atheromatous plaque. Nonspecific turbulent waveforms in the bilateral subclavian arteries with stenotic velocities. 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 Antegrade flow in the left vertebral artery. Reference: Radiology 2003; 229:340-346 Normal ICA PSV is <125 cm/sec and no plaque or intimal thickening is visible sonographically addition al criteria include ICA/CCA PSV ratio <2.0 and ICA EDV <40 cm/sec <50% ICA stenosis ICA PSV is <125 cm/sec and plaque or intimal thickening is visible sonographically additional criteria include ICA/CCA PSV ratio <2.0 and ICA EDV <40 cm/sec 50-69% ICA stenosis ICA PSV is 125-230 cm/sec and plaque is visible sonographically additional criter ia include ICA/CCA PSV ratio of 2.0-4.0 and ICA EDV of 40-100 cm/sec 70% ICA stenosis but less than near occlusion ICA PSV is >230 cm/sec and visible plaque and luminal narrowing are seen at zamarripa-scale and color Doppler ultrasound (the higher the Doppler parameters lie above the threshold of 230 cm/sec, the greater the likelihood of severe disease) additional criteria include ICA/CCA PSV ratio >4 and ICA EDV >100 cm/sec
--- NOTE | 2025-03-26 13:47 | CONSULTATION REPORT - RESIDENT ---
Consult Providers to CC Resident Creating Document: BESSY MARTIN RES History of Present Illness Reason for Admit\Complaint: Chest pain History of Present Illness Reason for consultation: workup of noncardiac chest pain The patient is a 69-year-old female with a history of GERD, anxiety, urinary incontinence, and allergies, presenting with ongoing palpitations and chest pain. Symptoms have persisted intermittently over the past 68 months, but worsened this morning while she was working. She reported central chest discomfort radiating bilaterally to the jaw, non-exertional, non-pleuritic, and relieved spontaneously after some time. She denies current lightheadedness, though reports multiple episodes of dizziness and syncope over the past several months. These syncopal episodes include: One in June, while standing in line at a restaurant (near-syncope). A fall with head trauma during a family event. Recurrent dizzy spells with vertiginous sensation (room spinning). A witnessed syncopal episode at her cardiologists office, where [employer] diagnosed possible sick sinus syndrome with transient bradycardia in the 40s. A fourth event occurred at home recently. She has had extensive cardiologic workup including event monitoring (showing nonsustained SVT), TSH (normal), nuclear stress test, echocardiogram, and brain imaging, all of which were non-revealing per prior documentation. A repeat stress test is pending today. Given the non-cardiac characteristics of her chest pain, and known history of GERD, she is being admitted for further evaluation of potential esophageal or upper GI causes. She is also due for age-appropriate colon cancer screening. Her last colonoscopy was 15 years ago, which revealed two polyps at the time. She reports no family history of colorectal cancer, and has had no recent abdominal pain, rectal bleeding, melena, or altered bowel habits. She is undergoing combined EGD and screening colonoscopy tomorrow. Allergies: Coded Allergies: acetaminophen (Verified Allergy, Unknown, 03/25/25) cyclobenzaprine (Verified Allergy, Unknown, 03/25/25) hydrocodone (Verified Allergy, Unknown, 03/25/25) pantoprazole (Verified Allergy, Unknown, 03/25/25) terbinafine (Verified Allergy, Unknown, 03/25/25) hydralazine (Verified Adverse Reaction, Mild, chest pain, 03/26/25) Home Medications Home Medications Active Reported Breztri Aerosphere Inhaler (Budesonide/Glycopyr/Formoterol) 160 Mcg-9 Mcg-4.8 Mcg/Actuation Hfa.aer.ad 2 Puffs INH BID Atarax* (Hydroxyzine HCl) 10 Mg Tablet 1 Tab PO HS Airsupra 90-80 Mcg Inhaler (Albuterol Sulfate/Budesonide) 90 Mcg-80 Mcg/Actuation Hfa.aer.ad 2 Puffs INH QID PRN Omeprazole 20 Mg Capsule.dr 1 Cap PO DAILY Zanaflex (Tizanidine HCl) 2 Mg Tablet 1 Tab PO BID PRN Ditropan Xl (Oxybutynin Chloride) 5 Mg Tab.osm.24 1 Tab PO DAILY Zyrtec (Cetirizine Hcl) 10 Mg Capsule 10 Mg PO DAILY Benzonatate 100 Mg Capsule 1 Cap PO TID PRN Past Medical History Past Medical History GERD Anxiety Allergies Urinary incontinence Past Surgical History Surgical History Comment Cholecystectomy Family History Family History: FH: dementia Past Social History Social History Comment Denied smoking, alcohol, illicit drug use ROS ROS Reviewed in full. All negative except for pertinent positive HPI. Exam Vitals: Vital Signs Date Time Temp Pulse Resp B/P (MAP) Pulse Ox O2 Delivery O2 Flow Rate FiO2 03/26/25 10:00 97.7 57 19 131/55 (80) 98 Room Air 03/26/25 08:00 0.0 03/26/25 05:41 21 General: Awake , alert, and oriented x4, resting comfortably in the bed, in no acute distress HEENT: Atraumatic, normocephalic, EOMI, anicteric sclera ; pink conjunctiva Neck: Trachea midline. Supple, full range of motion, no JVD Cardiac: Regular rhythm, regular rate with no murmurs all over the precordium. Respiratory: Equal breath sounds bilaterally, no tachypnea, no wheezing ,rub or rales, Chest wall is symmetric and without deformity. Gastrointestinal: Abdomen symmetric, non-distended, soft, non-tender, normal bowel sounds x4 quadrant, normoactive, no hepatosplenomegaly Musculoskeletal: No pedal edema, no cyanosis Neurological: Speech is clear, alert, and oriented x 4. No motor or sensory deficit, deep tendon reflexes normal, cerebellar intact. Cranial nerves II-XII intact. Skin: Warm and dry Diagnostic Data Last Recorded Lab Results: 03/25/[id number] Diagnostic Data: Laboratory Tests Test 03/26/25 02:21 Prothrombin Time 10.3 SECONDS (9.0-12.0) INR International Normalized Ratio 1.0 INR Activated Partial Thromboplast Time 23 SECONDS (22-32) Coagulation Comments Additional Plan 1.Chest Pain Likely Esophageal/GERD-related Symptoms non-exertional, radiating to jaw, and history of reflux, with cardiac workup negative (EKG, troponins 3, echo, stress testing, event monitor). GERD is a plausible etiology for her recurrent chest discomfort, particularly given chronicity and spontaneous resolution. The associated heartburn and acid regurgitation or furthermore corroborate any day for unlikely diagnosis of esophageal etiology for noncardiac chest pain. Other Differential Diagnoses: Peptic ulcer disease GERD with esophagitis diffuse esophageal spasm Functional chest pain (visceral hypersensitivity) Hiatal hernia with reflux exacerbation Plan: NPO after midnight Start IV pantoprazole 40 mg daily EGD tomorrow to evaluate for any PUD, esophageal mucosa, r/o erosive esophagitis, Barretts esophagus, or other pathology. Continue cardiac telemetry for arrhythmia monitoring in parallel. 2.Palpitations and Syncope Under Ongoing Cardiology Evaluation Possible sick sinus syndrome History of nonsustained SVT on event monitor, syncopal events, and bradycardia episode suggests possible sick sinus syndrome. Extensive cardiology workup already completed. Await results from todays stress test. From GI standpoint: No indication of GI-related syncope (anemia, GI bleeding, post-prandial hypotension). Plan: Coordinate with cardiology for final input. Rule out esophageal triggers for vagal stimulation (large hiatal hernia, esophageal spasm). 3.Screening Colonoscopy Age-appropriate Last colonoscopy 15 years ago, with 2 polyps removed. Average risk based on history, no red-flag GI symptoms. Patient was apparently recommended to have the screening colonoscopy, however she has not been able to schedule. In view of the fact that she had in the hospital baby will proceed with a screening colonoscopy during this hospitalization after bowel prep today. Plan: Proceed with EGD and colonoscopy tomorrow. The risks and benefits of these procedures including hemorrhage and perforation and need for surgical intervention in the event if such a complication were explained to the patient, which she understands and wishes to proceed. Begin bowel prep GoLYTELY today. NPO after midnight. 4.GERD Chronic Likely contributing to ongoing chest discomfort. Plan: IV PPI as above. Anti-reflux measures Will assess for mucosal disease during EGD and make further recommendations according to the EGD findings Continue PPI or consider BID dosing post-EGD depending on findings. 5.Anxiety Possibly Contributing to Palpitations Known anxiety disorder; may exacerbate perceived chest pain and palpitations. Hydroxyzine continued during admission. Plan: Coordinate with primary care/psychiatry for long-term anxiety management if needed. Bessy Martin MD Internal Medicine Resident, PGY-2 Date of Service: Mar 26, 2025 Billing Provider: XI INFANTE MD, GAURAV, RES Mar 26, 2025 13:47 XI INFANTE MD Mar 26, 2025 15:29
[2025-03-26] MEDS: PEG 3350/Na sulf,bicarb,Cl/KCl oral sol 4 liter bottle PO ONE (16:09)
[2025-03-26] MEDS: diazepam inj 5 MG/ML inj. IV PRN (16:27)
[2025-03-26 18:00] VITALS: BP 146/58; PULSE 62; RESP 15; TEMP 97.3; O2SAT 96
--- NOTE | 2025-03-26 18:09 | RADIOLOGY REPORT ---
PROCEDURE: MR MRI HEAD INDICATION: syncope, r/o cva EXAM DATE: 03/26/2025 04:30 PM COMPARISON: None TECHNIQUE: MRI of the brain without intravenous contrast. FINDINGS: Diffusion weighted images of the brain demonstrate no evidence of acute infarction. There is no evidence of acute intracranial hemorrhage, extra-axial collection, mass effect, midline s hift, herniation or hydrocephalus. The ventricles, sulci and cisterns appear age appropriate. Mild changes of chronic microvascular ischemic disease. There are no signal abnormalities on the susceptibility weighted sequences. The major vascular flow voids are present. The visualized paranasal sinuses and mastoid air cells are clear. The surrounding soft tissues and o sseous structures are unremarkable. IMPRESSION: 1. No evidence of acute infarction, intracranial hemorrhage, mass effect or hydrocephalus. Mild mccord es of chronic microvascular ischemic disease. HS:Y
[2025-03-26 20:00] VITALS: BP_SYST 139; BP_SYST 144; BP_DIAS 74; BP_DIAS 75; PULSE 58; PULSE 67
[2025-03-26 22:00] VITALS: BP 139/74; PULSE 67; RESP 16; TEMP 97.6; O2SAT 100
[2025-03-27] VITALS (14 sets, daily range): BP systolic 94–183; BP diastolic 47–76; PULSE 50–91; RESP 11–18; TEMP 96.3–98.1; O2SAT 98–100
[2025-03-27 06:10] LABS: MEAN PLATELET VOLUME 7.7 FL (7.4-10.4); RED CELL DISTRIBUTION WIDTH 14.4 % (11.5-14.5)
[2025-03-27 06:46] LABS: CREATININE 0.87 MG/DL (0.40-0.90); TOTAL CARBON DIOXIDE 27.3 MMOL/L (24-32); eCRCL 51 ML/MIN; eGFR 64 ML/MIN
[2025-03-27] MEDS ORDERED: LIDOcaine 2% Viscous 15ml cup ONE (07:22)
[2025-03-27] MEDS ORDERED: propofol inj 20 ML IV ONE ×3 (09:03)
[2025-03-27 09:04] LABS: CHOL/HDL RATIO 4.6 (0.00-4.99); LDL CHOLESTEROL 130 MG/DL (50-100)
--- NOTE | 2025-03-27 11:43 | PROGRESS NOTE ---
Daily Progress Note Providers to CC ~ Antibiotic Timeout Antibiotic Ordered?: Yes Subjective No acute events overnight. Patient examined at bedside. No new complaints. Patient denies chest pain, sob, palpitations, abdominal pain, n/v/d. Vss, tele sinus in 70s, labs unremarkable. EGD shows esophageal ulcer with no stigmata of recent bleeding. Objective Vital Signs Date Time Temp Pulse Resp B/P (MAP) Pulse Ox O2 Delivery O2 Flow Rate FiO2 03/27/25 10:10 65 15 114/69 (84) 99 Room Air 0.0 03/27/25 09:20 97.7 03/26/25 05:41 21 Result Diagram: 03/27/2553003/27/[id number] Physical Exam General: Generalized weakness, A&Ox 3, NAD HEENT: Normocephalic, PERRLA Neck: Supple, trachea midline, no JVD Chest: Clear to auscultation bilaterally Cardiovascular: RRR, S1&S2 GI: Soft and nontender Extremities: No cyanosis/clubbing/or edema RESIDENT BUYER: CN II-XII intact, no focal deficits Musculoskeletal: No paraspinal muscle tenderness, no muscle spasm Skin: Warm and intact Coagulation Studies Laboratory Tests Test 03/26/25 02:21 Prothrombin Time 10.3 SECONDS (9.0-12.0) INR International Normalized Ratio 1.0 INR Activated Partial Thromboplast Time 23 SECONDS (22-32) Coagulation Comments Problem\Assessment\Plan Assessment & Plan ACS- ruled out Chest pain likely 2/2 GERD Syncope -EKG showed normal rhythm, no acute ST-T changes, troponins x3 negative. 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 Sultana shows no reversible ischemia, negative -orthostatic vitals negative, carotid US unremarkable, EKG sinus in high 50s -03/27: tele sinus 70s; EGD shows esophageal ulcer with no stigmata of recent bleeding, colonoscopy unremarkable -continue PPI, tele Anxiety -continue hydroxyzine Urinary incontinence -continue Ditropan Code Status: Full code DVT prophylaxis: Lovenox Date of Service: Mar 27, 2025 Billing Provider: KARIE SKINNER Common Visit Codes: [id number] INP/OBS CARE(HIGH) KARIE SKINNER Mar 27, 2025 11:43
[2025-03-27] MEDS ORDERED: hydrALAZINE 20mg/ml inj. IV PRN (12:20)
--- NOTE | 2025-03-27 17:46 | ELECTROCARDIOGRAPH REPORT ---
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 Rema Sultana Measurements Intervals [place] Rate: 69 P: 53 NV: 135 QRS: 12 QRSD: 81 T: 29 QT: 433 QTc: 464 Interpretive Statements Sinus rhythm Atrial premature complex Electronically Signed On 03-28-2025 5:47:[address] Rema Sultana Please click the below link to view image of tracing.
[2025-03-28 06:00] VITALS: BP 128/63; PULSE 59; RESP 16; TEMP 98.2; O2SAT 97
[2025-03-28 07:25] LABS: MEAN PLATELET VOLUME 8.1 FL (7.4-10.4); RED CELL DISTRIBUTION WIDTH 14.5 % (11.5-14.5)
[2025-03-28 07:41] LABS: CREATININE 1.03 MG/DL (0.40-0.90); TOTAL CARBON DIOXIDE 24.1 MMOL/L (24-32); eCRCL 43 ML/MIN; eGFR 53 ML/MIN
[2025-03-28 10:00] VITALS: BP 136/88; PULSE 82; RESP 18; TEMP 98.2; O2SAT 99
[2025-03-28] MEDS ORDERED: LOSA25TA41 PO (10:04)
--- NOTE | 2025-03-28 13:08 | DISCHARGE SUMMARY ---
Discharge Summary Providers to CC ~ Discharge Summary Admission Diagnosis: CHEST PAIN, SYNCOPE Hospital Course DATE OF ADMISSION: 03/26/25 DATE OF DISCHARGE: 03/28/25 Discharge Diagnosis\\Comment: Chest pain likely 2/2 GERD ACS- ruled out Syncope likely 2/2 autonomic dysfunction Hypotension Hypertensive urgency Anxiety Urinary incontinence Operations\\Procedures: EGD Colonoscopy Consultants: Jeremiah Carrillo Dr. Complications: None Condition on DC: Stable New Medications: Losartan Potassium (Losartan Potassium) 25 Mg Tablet 25 MG PO DAILY for 90 Days, #90 TAB Continued Medications: Albuterol Sulfate/Budesonide (Airsupra 90-80 Mcg Inhaler) 90 Mcg-80 Mcg/Actuation Hfa.aer.ad 2 PUFFS INH QID PRN for SOB or wheezing Benzonatate (Benzonatate) 100 Mg Capsule 1 CAP PO TID PRN for cough Budesonide/Glycopyr/Formoterol (Breztri Aerosphere Inhaler) 160 Mcg-9 Mcg-4.8 Mcg/Actuation Hfa.aer.ad 2 PUFFS INH BID Cetirizine Hcl (Zyrtec) 10 Mg Capsule 10 MG PO DAILY, CAP Hydroxyzine Hcl* (Atarax*) 10 Mg Tablet 1 TAB PO HS Omeprazole (Omeprazole) 20 Mg Capsule.dr 1 CAP PO DAILY Oxybutynin Chloride (Ditropan Xl) 5 Mg Tab.osm.24 1 TAB PO DAILY Tizanidine Hcl (Zanaflex) 2 Mg Tablet 1 TAB PO BID PRN for muscle spasms Discharge Summary: History of Present Illness From H&P: "69-year-old male with PMH of GERD, anxiety, allergies, urinary incontinence, presented to the ER with chief complaints of palpitations and chest pain this morning. Patient stated she is having this ongoing for the past 68 months. However this morning when she was working she experienced chest pain over the center of the chest, radiating to both side of the jaws, not describing it as pressure, not aggravated with exertion, and relieved after sometime. Stated she had similar episodes before but none of the episodes are associated with exertion. He also had palpitations on and off, denies currently lightheadedness however patient stated two months ago she had lightheadedness and syncope." Hospital Course Diagnostic findings including MRI head, CT head, troponin series, EKG, orthostatic vitals, carotid ultrasound were unremarkable. 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 Sultana which was reviewed. Lexiscan was negative for reversible ischemia. Though, patient developed alternating hypotension with profound hypertension. GI Dr. Martin was consulted and patient underwent EGD which showed esophageal ulcer with no stigmata of recent bleeding and colonoscopy which was unremarkable. Patient was treated with PPI and antihypertensive. Patient did not experience further complications throughout the entire hospital stay and remained clinically and hemodynamically stable. Patient was seen and examined on the day of discharge. On day of discharge, vss and labs unremarkable. Patient denies chest pain, shortness of breath, palpitations. Patient did not experience syncopal episode during the entire hospital stay. All labs, diagnostic workups, discharge plan discussed with patient in details during visit before discharge. All questions and concerns answered to the best of my professional knowledge. Patient is to be discharged with HH and to follow-up with PCP and her diamond powder mixer Dr. Sultana within 2 weeks. Physical Exam General: Generalized weakness, A&Ox 3, NAD HEENT: Normocephalic, PERRLA Neck: Supple, trachea midline, no JVD Chest: Clear to auscultation bilaterally Cardiovascular: RRR, S1&S2 GI: Soft and nontender Extremities: No cyanosis/clubbing/or edema TRACK LAYER: CN II-XII intact, no focal deficits Musculoskeletal: No paraspinal muscle tenderness, no muscle spasm Skin: Warm and intact *Problems/Diagnosis: (1) Chest pain due to GERD Total Time Spent on D/C: > 30 Minutes Date of Service: Mar 28, 2025 Billing Provider: KARIE SKINNER Common Visit Codes: [id number] DISCH DAY >30min KARIE SKINNER Mar 28, 2025 13:04
== END 2025-03-28 13:08 | disposition home or self-care (01) | DRG 392 ==
LOC: ER 19:42 → ED HOLD 03-26 03:21 → OBSVTOIN 03-26 03:21 → EDBEDREQ 03-26 06:27 → ORTHO 4S 03-26 06:51
PROVIDERS: ADMIT Internal Medicine Sleep Medicine; ATTEND Nurse Practitioner Family
PROC: 0DB78ZX Excision of Stomach, Pylorus, Via Natural or Artificial Opening Endoscopic, Diagnostic (ICD-10-PCS; 2025-03-27)
PROC: 0DB68ZX Excision of Stomach, Via Natural or Artificial Opening Endoscopic, Diagnostic (ICD-10-PCS; 2025-03-27)
PROC: 0DJD8ZZ Inspection of Lower Intestinal Tract, Via Natural or Artificial Opening Endoscopic (ICD-10-PCS; 2025-03-27)
PROC: 0DB48ZX Excision of Esophagogastric Junction, Via Natural or Artificial Opening Endoscopic, Diagnostic (ICD-10-PCS; principal; 2025-03-27 08:12)
DX: K21.9 Gastro-esophageal reflux disease without esophagitis (principal); K22.10 Ulcer of esophagus without bleeding; J44.9 Chronic obstructive pulmonary disease, unspecified; F41.9 Anxiety disorder, unspecified; G90.89 Other disorders of autonomic nervous system; K57.30 Diverticulosis of large intestine without perforation or abscess without bleeding; I95.9 Hypotension, unspecified; K25.9 Gastric ulcer, unspecified as acute or chronic, without hemorrhage or perforation; K31.89 Other diseases of stomach and duodenum; F03.90 Unspecified dementia, unspecified severity, without behavioral disturbance, psychotic disturbance, mood disturbance, and anxiety; I10 Essential (primary) hypertension; Z79.899 Other long term (current) drug therapy; Z90.710 Acquired absence of both cervix and uterus; Z90.49 Acquired absence of other specified parts of digestive tract
CPT/HCPCS: 36415; 43239; 45378; 70551; 71045; 80048; 80053; 80061; 81003; 83735; 83880; 84484; 85025; 85610; 85730; 87081; 93005; 93880; 94760; 96372; 96374; 97116; 97161; 97530; 99285; A4620; G0378; J1650; J2704; J3360; J7030

== ENCOUNTER 2025-06-06 08:53 | Outpatient (CLI) | payer MEDICARE ==
[2025-06-06] VITALS (22 sets, daily range): BP systolic 48–150; BP diastolic 30–92; PULSE 58–100
[~2025-06-06 08:53] MED LIST changes: -BENZ-111 PO; +BENZ-268 PO; +LOSA25TA41 PO; -SERT-434 PO
--- NOTE | 2025-06-08 12:34 | CARDIOLOGY REPORT ---
DATE OF SERVICE: 06/06/2025 DICTATING PHYSICIAN: Rema Sultana MD DATE OF STUDY: 06/06/2025 DESCRIPTION: The patient underwent tilt table testing per protocol. Approximately 9 minutes into the test, the patient was briefly hypotensive. At the end of the test, while placed in the recovery, the patient was dizzy and orthostatic. Blood pressure dropped from 124/49 to 65/35 mmHg. Pulse remained stable. She then recovered. IMPRESSION: Negative head-up tilt table test. However, during recovery, the patient's blood pressure dropped from 124/49 to 65/35 mmHg with associated dizziness. No significant change in the patient's heart rate. Rema Sultana MD TID: [id number] RECEIPT: [id number] [facility]MAZ/RAMON
== END 2025-06-06 23:59 | disposition home or self-care (01) ==
LOC: CARD DIAG 08:53
PROVIDERS: ATTEND Internal Medicine Interventional Cardiology
DX: R55 Syncope and collapse (principal)
CPT/HCPCS: 93660